=== PATIENT | male | born 1970 | race Caucasian/White ===

== ENCOUNTER 2020-09-01 12:19 | Outpatient (NON) | payer OTHER, SELFPAY ==
[2020-09-01 22:00] LABS: SARS-CoV-2 RNA PCR Negative
== END 2020-09-01 12:20 ==
PROVIDERS: Visit Provider Family Medicine Sports Medicine
DX: J02.9 Acute pharyngitis, unspecified (principal); R09.81 Nasal congestion; R06.02 Shortness of breath; R43.9 Unspecified disturbances of smell and taste; Z20.828 Contact with and (suspected) exposure to other viral communicable diseases
CPT/HCPCS: 87635; C9803; U0003

== ENCOUNTER 2020-09-24 11:11 | Outpatient (NON) | payer OTHER, SELFPAY ==
[2020-09-24 22:14] LABS: SARS-CoV-2 RNA PCR Positive
== END 2020-09-24 11:12 ==
LOC: ANHCOVIDDT 11:13
PROVIDERS: Visit Provider Family Medicine Sports Medicine
DX: U07.1 COVID-19 (principal); R05 Cough; R51.9 Headache, unspecified; R53.83 Other fatigue
CPT/HCPCS: C9803; U0003; U0005